=== PATIENT | female | born 1960 | race Caucasian/White ===

== ENCOUNTER 2022-03-17 19:19 | Inpatient (IN) | payer OTHER ==
[~2022-03-17] VITALS: Ht 167.6 cm; Wt 134.3 kg
[2022-03-18 01:29] LABS: RED BLOOD COUNT 3.32 M/UL (4.00-5.10); WHITE BLOOD COUNT 7.1 K/UL (4.5-11.0)
[2022-03-18] MEDS ORDERED: LEVEMIR FL100 UNIT/1 SQ (09:16)
[2022-03-18] MEDS ORDERED: HYDROXYZINE HCL25 MG PO (09:16)
[2022-03-18] MEDS ORDERED: ONDANSETRON HCL4 MG PO (09:16)
[2022-03-18] MEDS ORDERED: CITALOPRAM HBR20 MG PO (09:16)
[2022-03-18] MEDS ORDERED: TYLENOL EXTRA500 MG PO (09:16)
[2022-03-18] MEDS ORDERED: ELIQUIS5 MG PO (09:17)
[2022-03-18] MEDS ORDERED: AMLODIPINE BESYL5 MG PO (09:17)
[2022-03-18] MEDS ORDERED: FERROUS SULFAT325 MG PO (09:18)
[2022-03-18] MEDS ORDERED: COLCHICINE0.6 MG PO (09:18)
[2022-03-18] MEDS ORDERED: FUROSEMIDE40 MG PO (09:18)
[2022-03-18] MEDS ORDERED: FAMOTIDINE10 MG PO (09:18)
[2022-03-18] MEDS ORDERED: GABAPENTIN600 MG PO (09:18)
[2022-03-18] MEDS ORDERED: LISINOPRIL20 MG PO (09:19)
[2022-03-18] MEDS ORDERED: ZAROXOLYN/DIUL2.5 MG PO (09:19)
[2022-03-18] MEDS ORDERED: SENNA8.6 MG PO (09:19)
[2022-03-18] MEDS ORDERED: LORATADINE10 MG PO (09:19)
[2022-03-18] MEDS ORDERED: ASPIRIN EC81 MG PO (09:20)
[2022-03-19 04:11] LABS: HEMOGLOBIN 8.8 gm/dl (12.3-15.3); RED BLOOD COUNT 3.28 M/UL (4.00-5.10); WHITE BLOOD COUNT 7.8 K/UL (4.5-11.0)
--- NOTE | 2022-03-20 04:03 | NUR ---
LATE ENTRY-03/19/[id number] LUIS AND DR. LAWSON NOTIFIED OF PRESENCE OF BLOOD IN NG TUBE ON INTERMITTENT LOW WALL SUCTION WHILE PATIENT BEING ON HEPARIN DRIP. NO ORDERS RECIEVED.
[2022-03-20 04:58] LABS: HEMOGLOBIN 8.2 gm/dl (12.3-15.3); RED BLOOD COUNT 3.05 M/UL (4.00-5.10); WHITE BLOOD COUNT 8.8 K/UL (4.5-11.0)
[2022-03-20 05:51] LABS: BUN/CREATININE RATIO 32 (0-10)
[2022-03-20 11:15] LABS: CREATININE, URINE 251.6 mg/dL (Not Estab.)
[2022-03-21 05:38] LABS: HEMOGLOBIN 7.5 gm/dl (12.3-15.3); RED BLOOD COUNT 2.82 M/UL (4.00-5.10); WHITE BLOOD COUNT 7.6 K/UL (4.5-11.0)
[2022-03-22 06:32] LABS: HEMOGLOBIN 7.5 gm/dl (12.3-15.3); RED BLOOD COUNT 2.9 M/UL (4.00-5.10); WHITE BLOOD COUNT 6.5 K/UL (4.5-11.0)
[2022-03-23 06:46] LABS: HEMOGLOBIN 8.1 gm/dl (12.3-15.3); RED BLOOD COUNT 3.06 M/UL (4.00-5.10); WHITE BLOOD COUNT 6.6 K/UL (4.5-11.0)
[2022-03-24 06:50] LABS: HEMOGLOBIN 8.1 gm/dl (12.3-15.3); RED BLOOD COUNT 3.04 M/UL (4.00-5.10); WHITE BLOOD COUNT 6.4 K/UL (4.5-11.0)
[2022-03-24 07:12] LABS: BUN/CREATININE RATIO 27 (0-10)
[2022-03-26 06:46] LABS: HEMOGLOBIN 8.3 gm/dl (12.3-15.3); RED BLOOD COUNT 3.14 M/UL (4.00-5.10); WHITE BLOOD COUNT 6.4 K/UL (4.5-11.0)
[2022-03-27 06:03] LABS: HEMOGLOBIN 8.2 gm/dl (12.3-15.3); RED BLOOD COUNT 3.12 M/UL (4.00-5.10)
--- NOTE | 2022-03-27 16:08 | NUR ---
Patient's 02 Sat is currently 96% on Room Air. No order for home oxygen will be needed at this time.
[2022-03-28 07:21] LABS: HEMOGLOBIN 8.6 gm/dl (12.3-15.3); RED BLOOD COUNT 3.21 M/UL (4.00-5.10); WHITE BLOOD COUNT 6.8 K/UL (4.5-11.0)
[2022-03-29 03:44] LABS: HEMOGLOBIN 8.5 gm/dl (12.3-15.3); RED BLOOD COUNT 3.17 M/UL (4.00-5.10)
[2022-03-29] MEDS ORDERED: ISOSORBIDE MONO30 MG PO (09:00)
[2022-03-29] MEDS ORDERED: GABAPENTIN600 MG PO ×2 (09:00→09:03)
[2022-03-29] MEDS ORDERED: DIAMOX 250 MG250 MG PO (09:00)
[2022-03-29] MEDS ORDERED: CITALOPRAM HBR20 MG PO (09:00)
[2022-03-29] MEDS ORDERED: BACTRIM DS TAB1 EACH PO (09:00)
[2022-03-29] MEDS ORDERED: LEVOFLOXACIN750 MG PO (09:00)
[2022-03-30 05:29] LABS: HEMOGLOBIN 8.8 gm/dl (12.3-15.3); RED BLOOD COUNT 3.33 M/UL (4.00-5.10); WHITE BLOOD COUNT 7.3 K/UL (4.5-11.0)
--- NOTE | 2022-03-30 15:03 | NUR ---
PATIENT WAS INFORMED HOW TO DO DRESSING CHANGE TO THE LEFT HEEL. PATIENT DONE WELL AND NEEDED LITTLE ASSIST. INFORMED PATIENT ON NEED FOR CLEANINESS AND IMPORTANCE OF DOING DRESSINGS CHANGES DAILY. PATIENT DEMONSTRATED A GOOD UNDERSTANDING.
== END 2022-03-30 19:21 | disposition home health service (06) | DRG 853 ==
LOC: MED SURG 4 20:37 → CCU 20:37 → PROG CARE 20:37 → CCU 03-18 11:15 → MED SURG 4 03-21 22:28
PROVIDERS: Internal Medicine; Internal Medicine Nephrology; Physician Assistant; ADMIT Internal Medicine
PROC: 3E03329 Introduction of Other Anti-infective into Peripheral Vein, Percutaneous Approach (ICD-10-PCS; 2022-03-17)
PROC: 3E043XZ Introduction of Vasopressor into Central Vein, Percutaneous Approach (ICD-10-PCS; 2022-03-17)
PROC: B24BZZZ Ultrasonography of Heart with Aorta (ICD-10-PCS; 2022-03-18)
PROC: 5A09357 Assistance with Respiratory Ventilation, Less than 24 Consecutive Hours, Continuous Positive Airway Pressure (ICD-10-PCS; 2022-03-18)
PROC: 5A0935A Assistance with Respiratory Ventilation, Less than 24 Consecutive Hours, High Flow/Velocity Cannula (ICD-10-PCS; 2022-03-18)
PROC: 5A09357 Assistance with Respiratory Ventilation, Less than 24 Consecutive Hours, Continuous Positive Airway Pressure (ICD-10-PCS; 2022-03-18)
PROC: 5A0935A Assistance with Respiratory Ventilation, Less than 24 Consecutive Hours, High Flow/Velocity Cannula (ICD-10-PCS; 2022-03-19)
PROC: 5A09357 Assistance with Respiratory Ventilation, Less than 24 Consecutive Hours, Continuous Positive Airway Pressure (ICD-10-PCS; 2022-03-19)
PROC: 5A0935A Assistance with Respiratory Ventilation, Less than 24 Consecutive Hours, High Flow/Velocity Cannula (ICD-10-PCS; 2022-03-19)
PROC: 5A09357 Assistance with Respiratory Ventilation, Less than 24 Consecutive Hours, Continuous Positive Airway Pressure (ICD-10-PCS; 2022-03-19)
PROC: 5A0935A Assistance with Respiratory Ventilation, Less than 24 Consecutive Hours, High Flow/Velocity Cannula (ICD-10-PCS; 2022-03-20)
PROC: 5A09357 Assistance with Respiratory Ventilation, Less than 24 Consecutive Hours, Continuous Positive Airway Pressure (ICD-10-PCS; 2022-03-20)
PROC: 5A09357 Assistance with Respiratory Ventilation, Less than 24 Consecutive Hours, Continuous Positive Airway Pressure (ICD-10-PCS; 2022-03-27)
PROC: 0JBR0ZZ Excision of Left Foot Subcutaneous Tissue and Fascia, Open Approach (ICD-10-PCS; principal; 2022-03-28)
PROC: 02HV33Z Insertion of Infusion Device into Superior Vena Cava, Percutaneous Approach (ICD-10-PCS; 2022-03-28)
PROC: B548ZZA Ultrasonography of Superior Vena Cava, Guidance (ICD-10-PCS; 2022-03-28)
DX: A41.9 Sepsis, unspecified organism (principal); G93.41 Metabolic encephalopathy; I50.33 Acute on chronic diastolic (congestive) heart failure; Z20.822 Contact with and (suspected) exposure to COVID-19; J96.21 Acute and chronic respiratory failure with hypoxia; J96.22 Acute and chronic respiratory failure with hypercapnia; R65.21 Severe sepsis with septic shock; N17.0 Acute kidney failure with tubular necrosis; J18.9 Pneumonia, unspecified organism; J69.0 Pneumonitis due to inhalation of food and vomit; I13.0 Hypertensive heart and chronic kidney disease with heart failure and stage 1 through stage 4 chronic kidney disease, or unspecified chronic kidney disease; I48.20 Chronic atrial fibrillation, unspecified; Z16.12 Extended spectrum beta lactamase (ESBL) resistance; N30.00 Acute cystitis without hematuria; E66.2 Morbid (severe) obesity with alveolar hypoventilation; I48.19 Other persistent atrial fibrillation; M86.8X7 Other osteomyelitis, ankle and foot; Z68.42 Body mass index [BMI] 45.0-49.9, adult; B96.20 Unspecified Escherichia coli [E. coli] as the cause of diseases classified elsewhere; B96.5 Pseudomonas (aeruginosa) (mallei) (pseudomallei) as the cause of diseases classified elsewhere; E11.42 Type 2 diabetes mellitus with diabetic polyneuropathy; G89.29 Other chronic pain; M54.9 Dorsalgia, unspecified; F32.A Depression, unspecified; F41.9 Anxiety disorder, unspecified; N18.31 Chronic kidney disease, stage 3a; L89.312 Pressure ulcer of right buttock, stage 2; R53.81 Other malaise; E11.22 Type 2 diabetes mellitus with diabetic chronic kidney disease; K21.9 Gastro-esophageal reflux disease without esophagitis; E11.621 Type 2 diabetes mellitus with foot ulcer; E11.69 Type 2 diabetes mellitus with other specified complication; R00.1 Bradycardia, unspecified; Z79.01 Long term (current) use of anticoagulants; Z79.4 Long term (current) use of insulin; Z95.810 Presence of automatic (implantable) cardiac defibrillator; Z79.82 Long term (current) use of aspirin; Z98.891 History of uterine scar from previous surgery
CPT/HCPCS: ECHO; 36415; 36600; 70450; 71045; 73630; 74018; 80048; 80053; 80202; 81001; 82043; 82533; 82550; 82553; 82570; 82803; 82810; 82962; 83036; 83540; 83550; 83605; 83735; 83880; 84100; 84156; 84439; 84443; 84484; 85025; 85027; 85379; 85610; 85730; 86140; 87040; 87070; 87077; 87086; 87186; 87205; 93005; 93306; 93970; 94640; 94660; 94664; 94760; 97110-GP-CQ; 97116-GP-CQ; 97162; 97166; 97530; 97530-GP-CQ; 97535; A6212; C1751; C9113; J0692; J0696; J1120; J1265; J1644; J1885; J1940; J2185; J2270; J2405; J2550; J3370; J7040; J7050; J7070; P9047

== ENCOUNTER 2022-04-07 17:31 | Inpatient (IN) | payer OTHER ==
[~2022-04-07] VITALS: Ht 170.2 cm; Wt 127.0 kg
[~2022-04-07 17:31] MED LIST: AMLODIPINE BESYL5 MG PO; ASPIRIN EC81 MG PO; BACTRIM DS TAB1 EACH PO; CITALOPRAM HBR20 MG PO; COLCHICINE0.6 MG PO; DIAMOX 250 MG250 MG PO; ELIQUIS5 MG PO; FAMOTIDINE10 MG PO; FERROUS SULFAT325 MG PO; FUROSEMIDE40 MG PO; GABAPENTIN600 MG PO; HYDROXYZINE HCL25 MG PO; ISOSORBIDE MONO30 MG PO; LEVEMIR FL100 UNIT/1 SQ; LEVOFLOXACIN750 MG PO; LISINOPRIL20 MG PO; LORATADINE10 MG PO; ONDANSETRON HCL4 MG PO; SENNA8.6 MG PO; TYLENOL EXTRA500 MG PO; ZAROXOLYN/DIUL2.5 MG PO
[2022-04-08 05:15] LABS: RED BLOOD COUNT 3.06 M/UL (4.00-5.10); WHITE BLOOD COUNT 8.3 K/UL (4.5-11.0)
[2022-04-08] MEDS ORDERED: LISINOPRIL20 MG PO (13:09)
[2022-04-08] MEDS ORDERED: ISOSORBIDE MONO30 MG PO (13:10)
[2022-04-08] MEDS ORDERED: DIAMOX 250 MG250 MG PO (13:10)
[2022-04-08] MEDS ORDERED: CITALOPRAM HBR20 MG PO (13:11)
[2022-04-09 04:27] LABS: HEMOGLOBIN 8.3 gm/dl (12.3-15.3); RED BLOOD COUNT 3.15 M/UL (4.00-5.10); WHITE BLOOD COUNT 9.1 K/UL (4.5-11.0)
[2022-04-10 04:45] LABS: HEMOGLOBIN 8.1 gm/dl (12.3-15.3); RED BLOOD COUNT 3.09 M/UL (4.00-5.10)
[2022-04-10 04:46] LABS: WHITE BLOOD COUNT 6.7 K/UL (4.5-11.0)
[2022-04-10 12:13] LABS: COMPLEMENT C3, SERUM 123 mg/dL (82-167); COMPLEMENT C4, SERUM 30 mg/dL (12-38)
[2022-04-10 13:14] LABS: ANTI-DSDNA ANTIBODIES 1 IU/mL (0-9)
[2022-04-10 15:09] LABS: A/G RATIO 0.8 (0.7-1.7); ALBUMIN 3.1 g/dL (2.9-4.4); ALPHA-1-GLOBULIN 0.2 g/dL (0.0-0.4); ALPHA-2-GLOBULIN 0.8 g/dL (0.4-1.0); BETA GLOBULIN 1.1 g/dL (0.7-1.3); GAMMA GLOBULIN 2.2 g/dL (0.4-1.8); GLOBULIN, TOTAL 4.3 g/dL (2.2-3.9); IMMUNOGLOBULIN A, QN, SERUM 254 mg/dL (87-352); IMMUNOGLOBULIN G, QN, SERUM 2354 mg/dL (586-1602); IMMUNOGLOBULIN M, QN, SERUM 156 mg/dL (26-217); M-SPIKE Not Observed g/dL (Not Observed); PROTEIN, TOTAL, SERUM 7.4 g/dL (6.0-8.5)
[2022-04-11 04:12] LABS: HEMOGLOBIN 8.9 gm/dl (12.3-15.3); RED BLOOD COUNT 3.36 M/UL (4.00-5.10)
[2022-04-11 04:27] LABS: WHITE BLOOD COUNT 9.3 K/UL (4.5-11.0)
[2022-04-12 06:44] LABS: HEMOGLOBIN 8.2 gm/dl (12.3-15.3); RED BLOOD COUNT 3.11 M/UL (4.00-5.10); WHITE BLOOD COUNT 9.4 K/UL (4.5-11.0)
[2022-04-12 08:14] LABS: ANTIMYELOPEROXIDASE (MPO) ABS <0.2 units (0.0-0.9); ANTIPROTEINASE 3 (PR-3) ABS <0.2 units (0.0-0.9); ATYPICAL PANCA <1:20 titer (Neg:<1:20); CYTOPLASMIC (C-ANCA) <1:20 titer (Neg:<1:20)
[2022-04-12] MEDS ORDERED: MEROPENEM1 GM IV (11:31)
[2022-04-12] MEDS ORDERED: PREGABALIN75 MG PO (11:57)
[2022-04-12] MEDS ORDERED: HYDROCODON-ACE1 EAC4 PO ×2 (11:57→14:19)
[2022-04-12] MEDS ORDERED: LYRICA75 MG PO (14:19)
--- NOTE | 2022-04-12 15:05 | NUR ---
1400: REPORT CALLED TO [facility] AND SPOKE WITH CRISTEL ZAMBRANO. PATIENT MEDICAL RECORDS SENT TO THE [facility] VIA FAX FROM [facility] [place].
--- NOTE | 2022-04-12 16:03 | NUR ---
PATIENT TRANSPORTED BY [facility] TO [facility]. PICC LINE IN PLACE IN RIGHT UPPER ARM.
== END 2022-04-12 16:15 | DRG 871 ==
LOC: CCU 19:35
PROVIDERS: Internal Medicine; Internal Medicine Infectious Disease; Internal Medicine Nephrology; Internal Medicine Pulmonary Disease; ADMIT Internal Medicine
PROC: 3E043XZ Introduction of Vasopressor into Central Vein, Percutaneous Approach (ICD-10-PCS; principal; 2022-04-07)
PROC: 3E03329 Introduction of Other Anti-infective into Peripheral Vein, Percutaneous Approach (ICD-10-PCS; 2022-04-07)
DX: A41.51 Sepsis due to Escherichia coli [E. coli] (principal); G93.41 Metabolic encephalopathy; J96.01 Acute respiratory failure with hypoxia; L89.623 Pressure ulcer of left heel, stage 3; N17.0 Acute kidney failure with tubular necrosis; R65.21 Severe sepsis with septic shock; R57.1 Hypovolemic shock; M86.8X6 Other osteomyelitis, lower leg; E66.2 Morbid (severe) obesity with alveolar hypoventilation; I50.32 Chronic diastolic (congestive) heart failure; I48.20 Chronic atrial fibrillation, unspecified; I13.0 Hypertensive heart and chronic kidney disease with heart failure and stage 1 through stage 4 chronic kidney disease, or unspecified chronic kidney disease; Z68.41 Body mass index [BMI] 40.0-44.9, adult; Z16.12 Extended spectrum beta lactamase (ESBL) resistance; E87.4 Mixed disorder of acid-base balance; Z20.822 Contact with and (suspected) exposure to COVID-19; A41.52 Sepsis due to Pseudomonas; E11.22 Type 2 diabetes mellitus with diabetic chronic kidney disease; E11.69 Type 2 diabetes mellitus with other specified complication; N18.30 Chronic kidney disease, stage 3 unspecified; E87.5 Hyperkalemia; E11.65 Type 2 diabetes mellitus with hyperglycemia; E86.0 Dehydration; D50.9 Iron deficiency anemia, unspecified; R91.8 Other nonspecific abnormal finding of lung field; E11.51 Type 2 diabetes mellitus with diabetic peripheral angiopathy without gangrene; D63.1 Anemia in chronic kidney disease; E11.40 Type 2 diabetes mellitus with diabetic neuropathy, unspecified; Z79.4 Long term (current) use of insulin; Z79.01 Long term (current) use of anticoagulants; Z79.82 Long term (current) use of aspirin; Z98.890 Other specified postprocedural states; Z98.891 History of uterine scar from previous surgery; Z83.3 Family history of diabetes mellitus; Z80.3 Family history of malignant neoplasm of breast; Z82.49 Family history of ischemic heart disease and other diseases of the circulatory system
CPT/HCPCS: 36415; 36600; 71045; 71250; 73700; 73718; 76536; 80048; 80053; 81001; 82009; 82140; 82550; 82553; 82728; 82784; 82803; 82962; 83520; 83540; 83550; 83605; 84155; 84165; 84484; 85025; 85610; 85730; 86038; 86140; 86160; 86225; 86256; 86334; 87040; 87077; 87086; 89050; 93005; 93922; 93925; 94664; 94760; A6212; C9113; J1756; J2185; J2270; J2370; J3486; J7030; J7040; U0002

== ENCOUNTER → 2022-05-07 | Outpatient (CLI) | payer OTHER ==
[~2022-05-07] MED LIST changes: +HYDROCODON-ACE1 EAC4 PO; +LYRICA75 MG PO; +MEROPENEM1 GM IV; +PREGABALIN75 MG PO
== END ==
LOC: RT 11:25
DX: E66.2 Morbid (severe) obesity with alveolar hypoventilation (principal)
CPT/HCPCS: 36600; 82803